=== PATIENT | female | born 1995 | race Caucasian/White ===

== ENCOUNTER 2023-01-17 11:21 | Emergency (ER) | payer OTHER ==
[~2023-01-17] VITALS: Ht 157 cm; Wt 99.7 kg
--- NOTE | 2023-01-17 11:33 | ED Abdominal Pain ---
General Chief Complaint: Abdominal/GI Problems Stated Complaint: PCOS | ABD PAIN History of Present Illness Date Seen by Provider: Jan 17, 2023 Time Seen by Provider: 11:32 Initial Comments 27-year-old female presents with right lower quadrant/pelvic pain. Patient has a history of PCOS reports that last night she had significant pain took some ibuprofen last night and feels like the pain has gotten any better. That she has not taken any for today. She was concerned so she called her primary care provider who told her to come in to make sure she is not having anything going on with appendicitis. She not having any nausea vomiting or urinary symptoms. Allergies and Home Medications Allergies Coded Allergies: No Allergy Information Available (Unverified , 01/17/23) Patient Home Medication List Home Medication List Reviewed: Yes Review of Systems Review of Systems Constitutional: No chills, No fever EENTM: No Symptoms Reported Respiratory: No Symptoms Reported Cardiovascular: No Symptoms Reported Gastrointestinal: See HPI Genitourinary: See HPI Musculoskeletal: no symptoms reported Skin: no symptoms reported Psychiatric/Neurological: No Symptoms Reported Physical Exam Vital Signs Vital Signs - First Documented 01/17/23 11:30 Temp 36.2 Pulse 96 Resp 18 B/P (MAP) 139/105 (116) Pulse Ox 99 O2 Delivery Room Air Capillary Refill : Height/Weight/BMI Height: '" Weight: lbs. oz. kg; BMI Method: General Appearance: WD/WN, no apparent distress Respiratory: lungs clear, normal breath sounds, no respiratory distress Cardiovascular: normal peripheral pulses, regular rate, rhythm Gastrointestinal: soft; No distended, No guarding, No rebound; tenderness (R ight pelvic) Extremities: non-tender, normal inspection Neurologic/Psychiatric: alert, normal mood/affect, oriented x 3 Skin: normal color, warm/dry Progress/Results/Core Measures Results/Orders Lab Results Laboratory Tests Test 01/17/23 11:40 01/17/23 12:58 Range/Units White Blood Count 10.4 4.3-11.0 10^3/uL Red Blood Count 4.73 3.80-5.11 10^6/uL Hemoglobin 14.0 11.5-16.0 g/dL Hematocrit 42 35-52 % Mean Corpuscular Volume 89 80-99 fL Mean Corpuscular Hemoglobin 30 25-34 pg Mean Corpuscular Hemoglobin Concent 33 32-36 g/dL Red Cell Distribution Width 12.5 10.0-14.5 % Platelet Count 220 130-400 10^3/uL Mean Platelet Volume 10.3 9.0-12.2 fL Immature Granulocyte % (Auto) 0 % Neutrophils (%) (Auto) 56 42-75 % Lymphocytes (%) (Auto) 36 12-44 % Monocytes (%) (Auto) 5 0-12 % Eosinophils (%) (Auto) 2 0-10 % Basophils (%) (Auto) 0 0-10 % Neutrophils # (Auto) 5.8 1.8-7.8 10^3/uL Lymphocytes # (Auto) 3.7 1.0-4.0 10^3/uL Monocytes # (Auto) 0.6 0.0-1.0 10^3/uL Eosinophils # (Auto) 0.2 0.0-0.3 10^3/uL Basophils # (Auto) 0.0 0.0-0.1 10^3/uL Immature Granulocyte # (Auto) 0.0 0.0-0.1 10^3/uL Sodium Level 141 135-145 MMOL/L Potassium Level 3.4 L 3.6-5.0 MMOL/L Chloride Level 108 H 98-107 MMOL/L Carbon Dioxide Level 23 21-32 MMOL/L Anion Gap 10 5-14 MMOL/L Blood Urea Nitrogen 12 7-18 MG/DL Creatinine 0.71 0.60-1.30 MG/DL Estimat Glomerular Filtration Rate 121 BUN/Creatinine Ratio 17 Glucose Level 100 70-105 MG/DL Calcium Level 9.0 8.5-10.1 MG/DL Corrected Calcium 9.0 8.5-10.1 MG/DL Total Bilirubin 0.3 0.1-1.0 MG/DL Aspartate Amino Transf (AST/SGOT) 16 5-34 U/L Alanine Aminotransferase (ALT/SGPT) 24 0-55 U/L Alkaline Phosphatase 89 40-136 U/L C-Reactive Protein High Sensitivity 1.69 H 0.00-0.50 MG/DL Total Protein 6.8 6.4-8.2 GM/DL Albumin 4.0 3.2-4.5 GM/DL Urine Color YELLOW Urine Clarity CLEAR Urine pH 6.5 5-9 Urine Specific [place] 1.010 L 1.016-1.022 Urine Protein NEGATIVE NEGATIVE Urine Glucose (UA) NEGATIVE NEGATIVE Urine Ketones NEGATIVE NEGATIVE Urine Nitrite NEGATIVE NEGATIVE Urine Bilirubin NEGATIVE NEGATIVE Urine Urobilinogen 0.2 < = 1.0 MG/DL Urine Leukocyte Esterase NEGATIVE NEGATIVE Urine RBC (Auto) TRACE-I H NEGATIVE Urine RBC 0-2 /HPF Urine WBC RARE /HPF Urine Squamous Epithelial Cells 25-50 H /HPF Urine Crystals NONE /LPF Urine Bacteria TRACE /HPF Urine Casts NONE /LPF Urine Mucus NEGATIVE /LPF Urine Culture Indicated NO My Orders Orders - KEITA,SARA L DO Cbc With Automated Diff (01/17/23 11:34) Comprehensive Metabolic Panel (01/17/23 11:34) Hs C Reactive Protein (01/17/23 11:34) Ua Culture If Indicated (01/17/23 11:34) Us Non Ob Pelvis Comp/Transvag (01/17/23 11:34) Ct Abd/Pelv W (Appendicitis) (01/17/23 12:46) Iohexol Injection (Omnipaque 350 Mg/Ml 1 (01/17/23 13:00) Received Contrast (Hold Metformin- Contr (01/17/23 13:00) Ns (Ivpb) (Sodium Chloride 0.9% Ivpb Bag (01/17/23 13:00) Medications Given in ED Current Medications Medications Dose Ordered Sig/Matthieu Route Start Time Stop Time Status Last Admin Dose Admin Iohexol 100 ml ONCE ONCE IV 01/17/23 13:00 01/17/23 13:01 DC 01/17/23 13:08 80 ML Sodium Chloride 100 ml ONCE ONCE IV 01/17/23 13:00 01/17/23 13:01 DC 01/17/23 13:08 80 ML Vital Signs/I&O 01/17/23 11:30 Temp 36.2 Pulse 96 Resp 18 B/P (MAP) 139/105 (116) Pulse Ox 99 O2 Delivery Room Air Progress Progress Note : Progress Note Patient's diagnostic studies were ordered reviewed and interpreted by me. Patient had a very minimal elevated CRP. Patient's ultrasound shows no acute findings. Patient had a CT abdomen and pelvis which was reviewed by me with initial interpretation with final interpretation per radiology report. Patient's CT abdomen and pelvis was negative for any acute abnormalities. Patient unknown cause for her pelvic pain. Patient is not taking anything since 8 PM last night when she took a little bit ibuprofen. Discussed with her that she will need to follow with her primary care provider if pain continues. That she can use Tylenol or ibuprofen. Patient is stable and discharged home Diagnostic Imaging Diagonstic Imaging: Ultrasound Plain Films/CT/US/NM/MRI: pelvis Comments US NON OB PELVIS COMP/TRANSVAG PROCEDURE: Pelvic comp/transvaginal sonogram. TECHNIQUE: Complete transabdominal and transvaginal pelvic ultrasound was performed. In addition, limited pelvic Doppler was performed. INDICATION: Right-sided pelvic pain. FINDINGS: Uterus is retroverted measuring 7.0 x 4.1 x 3.8 cm. Endometrium is 5 mm in thickness. There is an IUD centered in the endometrial canal. No myometrial mass is detected. Left ovary was not visualized. Right ovary measures 2.7 x 1.9 x 1.8 cm. There is blood flow to the right ovary. No adnexal mass or free fluid is detected. IMPRESSION: 1. The IUD is well centered in the endometrial canal. 2. Nonvisualized left ovary. Study is otherwise unremarkable. Reviewed: Reviewed/Discussed Diagonstic Imaging: CT Plain Films/CT/US/NM/MRI: abdomen, pelvis Comments Date of Exam:01/17/23 CT ABD/PELV W (APPENDICITIS) EXAMINATION: CT abdomen and pelvis with intravenous contrast. TECHNIQUE: Multiple contiguous axial images were obtained through the abdomen and pelvis after the uneventful administration of intravenous contrast. All CT scans use one or more of the following dose optimizing techniques: automated exposure control, MA and/or KvP adjustment based on patient size and exam type or iterative reconstruction. HISTORY: Right lower quadrant abdominal pain. COMPARISON: None available. FINDINGS: The heart is unremarkable. The included lung bases are clear. The liver, spleen, pancreas, adrenal glands, and kidneys have a normal appearance. The gallbladder is nondistended. There is no pathologically enlarged mesenteric or retroperitoneal adenopathy. The bowel loops are nondilated. The appendix is visualized in the right lower quadrant and has a normal appearance. There is no free fluid or free air. No acute osseous abnormalities. Ureters and bladder are grossly normal. IUD is in place. There is no free air, loculated collection, or adenopathy in the pelvis. IMPRESSION: 1. No acute abnormalities in the abdomen and pelvis. Normal appendix. Reviewed: Reviewed by Me, Reviewed/Discussed Departure Impression Primary Impression: Right-sided abdominal pain of unknown etiology Disposition: HOME, SELF-CARE Condition: Stable Departure-Patient Inst. Referrals: NO,LOCAL PHYSICIAN (PCP/Family) Primary Care Physician Patient Instructions: Abdominal Pain, Adult ED Add. Discharge Instructions: Tylenol or ibuprofen as needed for pain. Follow-up with your primary care provider if symptoms continue or not improving over the weekend All discharge instructions reviewed with patient and/or family. Voiced understanding. SARA KEITA DO Jan 17, 2023 11:33
[2023-01-17 11:51] LABS: BASOPHILS % (AUTO) 0 % (0-10); EOSINOPHILS # (AUTO) 0.2 10^3/uL (0.0-0.3); EOSINOPHILS % (AUTO) 2 % (0-10); HEMATOCRIT 42 % (35-52); LYMPHOCYTES # (AUTO) 3.7 10^3/uL (1.0-4.0); LYMPHOCYTES % (AUTO) 36 % (12-44); MEAN CORPUSCULAR HEMOGLOBIN 30 pg (25-34); MEAN CORPUSCULAR HGB CONC 33 g/dL (32-36); MEAN CORPUSCULAR VOLUME 89 fL (80-99); MEAN PLATELET VOLUME 10.3 fL (9.0-12.2); MONOCYTES # (AUTO) 0.6 10^3/uL (0.0-1.0); MONOCYTES % (AUTO) 5 % (0-12); NEUTROPHILS # (AUTO) 5.8 10^3/uL (1.8-7.8); NEUTROPHILS % (AUTO) 56 % (42-75); PLATELET COUNT 220 10^3/uL (130-400); WHITE BLOOD COUNT 10.4 10^3/uL (4.3-11.0)
[2023-01-17 12:03] LABS: POTASSIUM 3.4 MMOL/L (3.6-5.0)
[2023-01-17 12:06] LABS: TOTAL PROTEIN 6.8 GM/DL (6.4-8.2)
[2023-01-17 12:07] LABS: BILIRUBIN,TOTAL 0.3 MG/DL (0.1-1.0)
[2023-01-17 12:09] LABS: CREATININE SERUM 0.71 MG/DL (0.60-1.30)
[2023-01-17] MEDS ORDERED: NS 100 ML (IVPB) BAG IV ONE (13:00)
[2023-01-17] MEDS ORDERED: HOLD METFORMIN - RECEIVED CONTRAST 20 ML VIAL IV SCH (13:00)
[2023-01-17] MEDS ORDERED: IOHEXOL 350 MG/ML 100 ML (OMNIPAQUE 350) VIAL IV ONE (13:00)
--- NOTE | 2023-01-17 13:02 | Diagnostic Imaging Report ---
PROCEDURE: Pelvic comp/transvaginal sonogram. TECHNIQUE: Complete transabdominal and transvaginal pelvic ultrasound was performed. In addition, limited pelvic Doppler was performed. INDICATION: Right-sided pelvic pain. FINDINGS: Uterus is retroverted measuring 7.0 x 4.1 x 3.8 cm. Endometrium is 5 mm in thickness. There is an IUD centered in the endometrial canal. No myometrial mass is detected. Left ovary was not visualized. Right ovary measures 2.7 x 1.9 x 1.8 cm. There is blood flow to the right ovary. No adnexal mass or free fluid is detected. IMPRESSION: 1. The IUD is well centered in the endometrial canal. 2. Nonvisualized left ovary. Study is otherwise unremarkable. Dictated by: Dictated on workstation # [id number]
[2023-01-17 13:05] LABS: BILIRUBIN,URINE NEGATIVE (NEGATIVE); CLARITY,URINE CLEAR; COLOR,URINE YELLOW; GLUCOSE, URINE (UA) NEGATIVE (NEGATIVE); KETONES,URINE NEGATIVE (NEGATIVE); LEUKOCYTE ESTERASE ,URINE NEGATIVE (NEGATIVE); NITRITE,URINE NEGATIVE (NEGATIVE); PH,URINE 6.5 (5-9); PROTEIN,URINE NEGATIVE (NEGATIVE)
[2023-01-17 13:15] LABS: BACTERIA,URINE TRACE /HPF; RBC,URINE 0-2 /HPF; SQUAMOUS EPITHELIAL CELL,UR 25-50 /HPF; WBC,URINE RARE /HPF
--- NOTE | 2023-01-17 13:27 | Diagnostic Imaging Report ---
EXAMINATION: CT abdomen and pelvis with intravenous contrast. TECHNIQUE: Multiple contiguous axial images were obtained through the abdomen and pelvis after the uneventful administration of intravenous contrast. All CT scans use one or more of the following dose optimizing techniques: automated exposure control, MA and/or KvP adjustment based on patient size and exam type or iterative reconstruction. HISTORY: Right lower quadrant abdominal pain. COMPARISON: None available. FINDINGS: The heart is unremarkable. The included lung bases are clear. The liver, spleen, pancreas, adrenal glands, and kidneys have a normal appearance. The gallbladder is nondistended. There is no pathologically enlarged mesenteric or retroperitoneal adenopathy. The bowel loops are nondilated. The appendix is visualized in the right lower quadrant and has a normal appearance. There is no free fluid or free air. No acute osseous abnormalities. Ureters and bladder are grossly normal. IUD is in place. There is no free air, loculated collection, or adenopathy in the pelvis. IMPRESSION: 1. No acute abnormalities in the abdomen and pelvis. Normal appendix. Dictated by: Dictated on workstation # [id number]
[2023-01-17] MEDS ORDERED: KETOROLAC 30 MG/ML VIAL IVP STA (13:40)
[2023-01-17 13:55] VITALS: BP 130/82
== END 2023-01-17 13:55 | disposition home or self-care (01) ==
LOC: ER 11:27
DX: R10.2 Pelvic and perineal pain (principal); R10.31 Right lower quadrant pain; R79.82 Elevated C-reactive protein (CRP); Z87.42 Personal history of other diseases of the female genital tract
CPT/HCPCS: 36415; 74177; 76830; 76856; 80053; 81000; 85025; 86141